=== PATIENT | female | born 1980 | race Two or more races ===

== ENCOUNTER 2025-03-11 06:00 | Outpatient (CLI) | payer OTHER ==
[~2025-03-11] VITALS: Ht 160 cm; Wt 83.9 kg
[2025-03-11 11:57] VITALS: BP 113/75
[2025-03-18] MEDS ORDERED: TRIAMCINOLONE ACETONIDE 40 MG/ML VIAL ONE (21:35)
== END 2025-03-11 06:01 | disposition home or self-care (01) ==
LOC: EKG 06:00 → ADM 10:45 → CIR.AMB 03-18 07:00 → EDSTATUS 03-18 10:45 → CIR.AMB 03-18 10:45
PROVIDERS: ATTEND Specialist
DX: Z30.2 Encounter for sterilization (principal); O34.211 Maternal care for low transverse scar from previous cesarean delivery

== ENCOUNTER → 2025-05-27 | Day surgery (SDC) | payer OTHER ==
[2025-05-23 16:14] VITALS: BP 116/81
[~2025-05-27] VITALS: Ht 160 cm; Wt 81.6 kg
[~2025-05-27] MED LIST: BUPIVACAINE HCL 30 ML VIAL IJ ONE; CEFAZOLIN SODIUM 1,000 MG VIAL IV ONE; KETOROLAC TROMETHAMINE 60 MG VIAL IM ONE; MORPHINE SULFATE 4 MG/ML VIAL IV ONE; POVIDONE-IODINE 118 ML BOTT TOP SCH
== END | disposition home or self-care (01) ==
LOC: ADM 05-23 11:15 → CIR.AMB 07:00
PROVIDERS: ATTEND Specialist
DX: N83.8 Other noninflammatory disorders of ovary, fallopian tube and broad ligament (principal); Z30.2 Encounter for sterilization